=== PATIENT | female | born 1995 | race Caucasian/White ===

== ENCOUNTER 2021-08-01 07:24 | Day surgery (SDC) | payer BC ==
[2021-07-31 09:34] VITALS: BMI 21.1
[2021-08-01] MEDS ORDERED: Lidocaine 1% MPF 2 ML VIAL ONE (07:43)
[2021-08-01] MEDS ORDERED: Midazolam HCl 2 mg/2 ml Vial ONE (10:00)
[2021-08-01] MEDS ORDERED: Ondansetron PF 4 MG/2 ML Vial ONE (10:01)
[2021-08-01] MEDS ORDERED: Dexamethasone 4 mg/ml Vial ONE (10:01)
[2021-08-01] MEDS ORDERED: Fentanyl 100 MCG/2 ML VIAL ONE (10:01)
[2021-08-01] MEDS ORDERED: PROPOFOL 20 ML ONE (10:01)
[2021-08-01] MEDS ORDERED: Lidocaine 1% PF 5 ML VIAL ONE ×2 (10:01→10:22)
[2021-08-01] MEDS ORDERED: PHENYLEPHRINE-NS 100 MCG/ML 10 ML SYRINGE ONE (10:29)
[2021-08-01] MEDS ORDERED: Ketorolac Tromethamine 30 MG/ML VIAL ONE (10:49)
== END 2021-08-01 12:30 | disposition home or self-care (01) ==
LOC: CSHSDC 07:24
PROVIDERS: ATTEND Obstetrics & Gynecology
PROC: 10D17ZZ Extraction of Products of Conception, Retained, Via Natural or Artificial Opening (ICD-10-PCS; principal; 2021-08-01)
PROC: 0UJD8ZZ Inspection of Uterus and Cervix, Via Natural or Artificial Opening Endoscopic (ICD-10-PCS; principal; 2021-08-01)
DX: O02.1 Missed abortion (principal); O08.1 Delayed or excessive hemorrhage following ectopic and molar pregnancy; D50.0 Iron deficiency anemia secondary to blood loss (chronic); Z79.2 Long term (current) use of antibiotics; Z79.899 Other long term (current) drug therapy
CPT/HCPCS: 36415; 86850; 86900; 86901; 88305; J1100; J1885; J2250; J2405; J2704; J3010